=== PATIENT | female | born 1990 | race Caucasian/White ===

== ENCOUNTER 2017-09-04 12:37 | Emergency (ER) | payer BC ==
[~2017-09-04] VITALS: Ht 160 cm; Wt 68.0 kg
[~2017-09-04 12:37] MED LIST: BIRTH CONTROL PILL; HYDROCODONE-APA1 TA1 PO; IBUPROFEN800 MG PO; IMPLANON68 MG ID; LEVAQUIN 750 M750 MG PO; NAPRELAN500 MG PO; TYLENOL W/CODEI1 TA2 PO
--- OUTSIDE RECORDS SUMMARY | 2017-09-04 12:43 | External Medical Summary Rpt | CCD ---
Author Author JAYRO Address Unknown Phone [email or web address] Purpose Continuity of Care Document - through 2016
--- OUTSIDE RECORDS SUMMARY | 2017-09-04 12:43 | External Medical Summary Rpt | CCD ---
Author Author JAYRO Address Unknown Phone [email or web address] Purpose Continuity of Care Document - through 2016
--- OUTSIDE RECORDS SUMMARY | 2017-09-04 12:44 | External Medical Summary Rpt | CCD ---
Author Author [employer] Organization [employer] Address Unknown Phone Unavailable Purpose Continuity of Care Document - through 2016
--- OUTSIDE RECORDS SUMMARY | 2017-09-04 12:44 | External Medical Summary Rpt ---
Author Author JAYRO Ruiz, [employer] Organization [employer] Address Unknown Phone Unavailable
--- OUTSIDE RECORDS SUMMARY | 2017-09-04 12:44 | External Medical Summary Rpt | CCD ---
Author Author , JAYRO DIAL Address Unknown Phone Immunization Name Date Rout CVX Reac Dose Comm Prov Is Faci e tion ent ider Refu lity Give sed n Td 04- 9 999 Hist H149 No H149 (maryanne - ori lt), 03 al Info adso rmat rbed ion - Sour ce Unsp ecif ied Hep 09-0 8 999 Hist H149 No H149 B, 3- [facility] ped al adol Info rmat ion - Sour ce Unsp ecif ied Hep 03-2 8 999 Hist H149 No H149 B, - ori ped al adol Info rmat ion - Sour ce Unsp ecif ied Hep 02-2 8 999 Hist H149 No H149 B, - [facility] ped al adol Info rmat ion - Sour ce Unsp ecif ied MMR 02-2 3 999 Hist H149 No H149 06-03 ori 97 al Info rmat ion - Sour ce Unsp ecif ied
--- OUTSIDE RECORDS SUMMARY | 2017-09-04 12:44 | External Medical Summary Rpt | CCD ---
Author Author , JAYRO DIAL Address Unknown Phone [email or web address] Immunization Name Date Rout CVX Reac Dose Comm Prov Is Faci e tion ent ider Refu lity Give sed n Td 04- 9 999 Hist H149 No H149 (maryanne - ori lt), 03 al Info adso rmat rbed ion - Sour ce Unsp ecif ied Hep 09-0 8 999 Hist H149 No H149 B, 3- [facility] ped al adol Info rmat ion - Sour ce Unsp ecif ied Hep 03-2 8 999 Hist H149 No H149 B, - ori ped al adol Info rmat ion - Sour ce Unsp ecif ied Hep 02-2 8 999 Hist H149 No H149 B, - [facility] ped al adol Info rmat ion - Sour ce Unsp ecif ied MMR 02-2 3 999 Hist H149 No H149 06-03 ori 97 al Info rmat ion - Sour ce Unsp ecif ied
--- NOTE | 2017-09-04 13:19 | Urgent Treatment Center Report ---
History of Present Issue Date/Time Seen by Provider 09/04/17 1256 Visit Reason Pt arrived:Walked Presenting Problem:PT C/O OF ABDOMINAL PAIN. DENIES ANY VOMITING OR DIARRHEA. Location if Accident: Onset of symptoms date/time:09/01/17/ or onset unknown for:MEDICAL HX UNKNOWN Have you (or family members/close friends) recently traveled outside the [place]? N If Yes, where/when: Have you had exposure to infectious disease within the past month? TB? Other? Specify: Here alone c/o abdominal pain since day before yesterday. "I think it could be heartburn or a stress ulcer". 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 Lots of stress lately. Pain started in epigastric region approx 1 hour after eating chicken tenders. No pain while sleeping but woke up yesterday morning w/ pain milder but still present. Pain worse 1-2 hours after eating. "no matter what I eat.". Worse last night after eating peanut butter. Pain radiates up between breast "like heartburn would". Denies N/V/D, fever. No chest pain, palpitations. PCP [facility], has not contacted them. Source patient Exam Limitations no limitations ALLERGIES Coded Allergies: amoxicillin (Mild, 09/04/17) erythromycin base (Mild, 09/04/17) Home Medications Active Scripts Ibuprofen (Ibuprofen 800MG) 800 MG PO TID 5 Days Prov: 09/12/14 HYDROCODONE 5MG/APAP 325MG (Hydrocodon-Acetaminophen 5-325) 1 TAB PO Q6HP PRN severe painj #7 TAB Prov: 07/12/14 Reported Medications Etonogestrel (Implanon) 68 MG ID History Medical History General Angina: No NM: No Hypertension? No Hyperlipidemia? No CHF? No DVT? No PE? No COPD? No Asthma? No Anemia? No GERD? No Gastric ulcers? No GI Bleed? No Hernia? No Thyroid Problems? No CVA? No Seizures? No Diabetes? No Renal Insuffiency? No UTI? No Stones? No BPH? No GB Disease: No Asplenia? No Hepatitis? No Sickle Cell Disease? No Arthritis? No Migraines? No Cataracts? No Glaucoma? No MRSA? Yes HIV? No TB? No Depression? No Cancer? No More? No Immunization HX DT/Tetanus 5-10 YRS Surgical Hx Previous Surgery?N Social History Smoking Hx Smoker: Never Smoker Tobacco: No Alcohol Alcohol: No Review of Systems All Other Systems Reviewed and Negative (as appropriate for CC) Constitutional see HPI, denies malaise Respiratory denies cough, denies shortness of breath Cardiovascular see HPI Gastrointestinal see HPI, denies constipation Genitourinary denies: dysuria, frequency, hesitancy, other (change urine color or smell). Musculoskeletal denies back pain, denies joint pain, denies neck pain Skin denies lesions, denies lumps Psychiatric/Neurological denies headache, denies numbness, denies tingling, denies weakness Physical Exam Vital Signs Vital Signs Date Time Temp Pulse Resp B/P Pulse O2 O2 Flow FiO2 Ox Delivery Rate 09/04 1255 98.1 71 20 111/80 99 General Appearance normal appearance, no apparent distress Neck normal inspection, non-tender, supple Respiratory Status Yes: trachea midline, chest symmetrical, non tender chest. No: respiratory distress, use of accessory muscles, pain on inspiration, pain on expiration, productive cough, non productive cough. Lung Sounds anterior: lungs clear. posterior: lungs clear. bilateral: lungs clear. Cardiovascular regular rate/rhythm, no peripheral edema, no murmur Gastrointestinal normal bowel sounds, soft, no organomegaly, no pulsatile mass, no guarding, no rebound, mild epigastric and periumbilical tenderness Back no CVA tenderness Neurologic alert, oriented x 3 Skin normal color, warm/dry Medical Decision Making LABS/Meds/Orders Pt receiving controlled substance in ED? No Results/Orders Current Medication Orders Sig/Trish Start time Last Medication Dose Route Stop Time Status Admin Multi-Ingredient GI 60 ML ONCE ONE 09/04 1315 DC 09/04 Drug PO 09/04 1316 1311 Multi-Ingredient GI 0 .STK-MED ONE 09/04 1313 DC Drug PO Progress [facility] Progress Notes Date 09/04/17 Time 1342 Comment Pain resolved since GI cocktail Departure Departure Time of Disposition 1342 Disposition DC Home or Self Care(routine) Clinical Impression Primary Impression: Dyspepsia Condition STABLE Referrals Nael Godoy MD Call and schedule follow up appointment to see if medication is helping and due to rule out ulcer. Patient Instructions DI for Dyspepsia, DIET-GERD NUTRITION [facility] Additional Instructions Avoid those foods we discussed that not only cause acid reflux but those that also relax that spincter and allow back up. Avoid NSAIDs and other medications hard on your stomach until ulcer ruled out. Follow up EXTREMELY important. Discharge Counseling Counseled pt/family regarding diagnosis, medications/RX, home care, follow up needs Prescriptions Current Visit Scripts Omeprazole (Omeprazole 20MG) 20 MG PO DAILY #30 ECC at [id number]
[2017-09-04] MEDS ORDERED: OMEPRAZOLE20 MG PO (13:45)
[2017-09-04 13:49] VITALS: BP 111/80
== END 2017-09-04 13:50 | disposition home or self-care (01) ==
LOC: UTC 12:37
DX: R10.13 Epigastric pain (principal); Z88.1 Allergy status to other antibiotic agents